=== PATIENT | male | born 1985 | race Caucasian/White ===

== ENCOUNTER 2018-05-30 12:47 | Emergency (ER) | payer OTHER ==
[2018-05-30] MEDS ORDERED: Metoprolol Tartrate TAB* 25 MG PO ONE ×2 (13:06→14:41)
[2018-05-30] MEDS ORDERED: LORazepam TAB(*) 1 MG PO ONE (13:06)
--- NOTE | 2018-05-30 13:12 | ED ---
HPI Cardiac - HPI Summary HPI Summary: This is carl Morales documenting for attending Marty Lamas MD. Patient is a 32 y/o M BIBA w/ c/o heart racing and possible anxiety attack. He is in [facility] for alcohol rehabilitation. Patient reports that he could not sleep last night. While he was lying down in the morning reading a book, he states his heart started racing for some time. The patient notes he experienced two episodes later in the morning, each of which was worse than the previous. During the third episode, he notes he was in the shower and he started to hyperventilate and reports experiencing blurred vision. He also claims experiencing tingling in his body and face. Right sided chest pain and palpitations are experienced during these episodes. However, on triage pain is denied and nothing is noted to aggravate/alleviate Sx. [facility] RN provided zoloft, hydroxyzine, habapentin, clonidine, and folic acid, but none of these were noted to alleviate Sx. EMS reports patient was measured to be tachycardic at 110 -140 BPM. He denies Hx of drug use and smoking. PMHx of cardiac disease is denied but he has FMHx of cardiac disease. - History of Current Complaint Stated Complaint: ANXIETY,RAPID HR Time Seen by Provider: 05/30/18 12:52 Hx Obtained From: Patient Onset/Duration: Started Hours Ago - onset this morning Timing: Intermittent - 3 separate episodes Current Severity: None - on triage, pain is denied Pain Intensity: 0 Pain Scale Used: 0-10 Numeric - 0/10 Chest Pain Location: Discrete at: - right side of chest Chest Pain Radiates: No Aggravating Factor(s): Nothing Alleviating Factor(s): Nothing Associated Signs and Symptoms: Positive: Chest Pain - right sided, Tingling - face/body, Palpitations, Other: - heart racing, hyperventilating, blurred vision PMH/Surg Hx/FS Hx/Imm Hx Cardiovascular History: Denies: Hx Myocardial Infarction Sensory History: Denies: Hx Legally Blind Infectious Disease History: No Infectious Disease History: Denies: Traveled Outside the [place] in Last 30 Days - Family History Known Family History: Positive: Cardiac Disease - Social History Lives: [facility] - lives at [facility] Alcohol Use: patient is in rehab for alcohol currently, Hx of alcohol abuse Substance Use Type: Reports: None Smoking Status (MU): Never Smoked Tobacco Review of Systems Positive: Blurred Vision Positive: Palpitations, Chest Pain, Other - heart racing, hyperventilation Positive: Other - tingling sensation Positive: Other - c/o anxiety attack All Other Systems Reviewed And Are Negative: Yes Physical Exam - Summary Physical Exam Summary: VITAL SIGNS: Reviewed. GENERAL: Patient is a well-developed and nourished male who is lying comfortable in the stretcher. Patient is not in any acute respiratory distress. HEAD AND FACE: No signs of trauma. No ecchymosis, hematomas or skull depressions. No sinus tenderness. EYES: PERRLA, EOMI x 2, No injected conjunctiva, no nystagmus. EARS: Hearing grossly intact. Ear canals and tympanic membranes are within normal limits. MOUTH: Oropharynx within normal limits. NECK: Supple, trachea is midline, no adenopathy, no JVD, no carotid bruit, no c- spine tenderness, neck with full ROM. CHEST: Symmetric, no tenderness at palpation LUNGS: Clear to auscultation bilaterally. No wheezing or crackles. CVS: Regular rate and rhythm, S1 and S2 present, no murmurs or gallops appreciated. ABDOMEN: Soft, non-tender. No signs of distention. No rebound no guarding, and no masses palpated. Bowel sounds are normal. EXTREMITIES: FROM in all major joints, no edema, no cyanosis or clubbing. NEURO: Alert and oriented x 3. No acute neurological deficits. Speech is normal and follows commands. SKIN: Dry and warm Triage Information Reviewed: Yes Vital Signs On Initial Exam: Initial Vitals Temp Pulse Resp BP Pulse Ox 98.5 F 95 20 134/95 100 05/30/18 12:51 05/30/18 12:51 05/30/18 12:51 05/30/18 12:51 05/30/18 12:51 Vital Signs Reviewed: Yes Diagnostics - Vital Signs Vital Signs Temp Pulse Resp BP Pulse Ox 05/30/18 12:51 98.5 F 95 20 134/95 100 - Laboratory Result Diagrams: 05/30/18 13:18 05/30/18 13:18 Lab Statement: Any lab studies that have been ordered have been reviewed, and results considered in the medical decision making process. - Radiology CXR Xray Interpretation: No Acute Changes Radiology Interpretation Completed By: Radiologist - Normal Chest. This report was reviewed by ED physician. - CT CXR CT Interpretation: No Acute Changes CT Interpretation Completed By: Radiologist - Normal Chest. This report was reviewed by ED physician. - EKG 1425 Cardiac Rate: NL - rate of 86 bpm EKG Rhythm: Sinus Rhythm EKG Interpretation: no ST elevation, normal axis Re-Evaluation - Re-Evaluation First Eval Re-Evaluation Time: 15:17 Comment: Discussed labs, test results, and follow-up plan with patient. The patient is agreeable with the plan. Disposition - Course Assessment/Plan: Physical Augmentin care Patient is a 32-year-old male who presents to the emergency department with chief complaint of having anxiety, panic attacks, and palpitations. Patient is in [facility] for alcoholism. Blood test results without any significant abnormality, urinalysis is negative for UTI , urine toxicology negative. EKG shows a normal sinus rhythm without ST elevations. Chest x-ray impression: No acute cardiopulmonary pathology. In the ED course the patient was given Ativan and after these medications the symptoms resolved. The patient was observed in the emergency room for a couple hours and he did not have any episodes of anxiety. He has episodes when his heart rate is increased pain usually is when he is moving, upset. However the patient is asymptomatic. Patient denies any dizziness, chest pain or palpitations. At this point the patient is hemodynamically stable alert and oriented 3. Patient will be discharged home with follow-up with primary care physician. Patient was instructed to return to the emergency department if he develop any other symptoms. The patient understands and agrees. - Diagnoses Provider Diagnoses: Anxiety, Sinus tachycardia seen on monitoring specialist Discharge - Sign-Out/Discharge Documenting (check all that apply): Patient Departure - discharge - Discharge Plan Condition: Stable Disposition: HOME Prescriptions: hydrOXYzine HCL TAB* [Atarax 25 MG TAB*] 25 mg PO TID PRN #30 tab PRN Reason: Anxiety Patient Education Materials: Anxiety (ED), Tachycardia (ED) Referrals: [facility] [Outside] - 3 Days Additional Instructions: Return to ED for any new or worsening symptoms.
[2018-05-30 13:28] LABS: ABS Basophils 0 10^3/ul (0-0.2); ABS Eosinophils 0 10^3/ul (0-0.6); ABS Monocytes 0.7 10^3/ul (0-0.8); ABS Neutrophils 8.1 10^3/ul (1.5-7.7); ABS Nucleated RBC 0 10^3/ul; Eosinophil % 0.5 % (0-6); Hematocrit 40 % (42-52); Hemoglobin 14.3 g/dl (14.0-18.0); Lymphocyte % 9.7 % (25-47); Mean Corpuscular HGB Conc 35 g/dl (31-36); Mean Corpuscular Hemoglobin 31 pg (27-31); Mean Corpuscular Volume 87 fL (80-94); Mean Platelet Volume 7.8 um3 (7.4-10.4); Nucleated Red Blood Cells % 0; Platelet Count 369 10^3/ul (150-450); Red Blood Count 4.66 10^6/ul (4.00-5.40); Red Cell Distribution Width 15 % (10.5-15); White Blood Count 9.9 10^3/ul (3.5-10.8)
[2018-05-30 13:43] LABS: Urine Appearance Clear; Urine Blood Negative (Negative); Urine Color Yellow; Urine Ketones Negative (Negative); Urine Protein Negative (Negative); Urine Urobilinogen Negative (Negative)
--- NOTE | 2018-05-30 13:45 | RAD ---
INDICATION: Palpitations COMPARISON: None TECHNIQUE: PA and lateral dual-energy views were obtained. FINDINGS: Bones/Soft Tissues: There are no acute bony findings. Cardiomediastinal: The cardiomediastinal silhouette is normal. Lungs: There are no infiltrates. Pleura: There are no pleural effusions. Other: None IMPRESSION: NORMAL CHEST
[2018-05-30 13:50] LABS: EGFR Non-African American 87.6 (>60)
--- OUTSIDE RECORDS SUMMARY | 2018-05-30 14:27 | XMS REPORT | Continuity of Care Document ---
:1985 Author Organization [facility] Care Team Providers Name Role Phone LUCIO DILLARD Primary Care Physician Allergies and Intolerances No Known Allergies Medications RxNorm Medication Dose Route Instructions Start Date End Date Status 792667 Acetaminophen 325 650 MG ORAL EVERY 6 HOURS Active MG Oral Tablet NEEDED as needed. [Tylenol] (pt has no idea what meds he takes. Pt preferred pharmacy was contacted, but pharmacy states he doesn't pick up operator meds there. ) Adderall Oral oral orally every day Active (pt couldn't recall strength of med. pt has no idea what meds he takes. Pt preferred pharmacy was contacted, but pharmacy states he doesn't pick up operator meds there. ) 814965 Folic Acid 1 MG 1 MG ORAL ONCE A DAY (pt Active Oral Tablet has no idea what meds he takes. Pt preferred pharmacy was contacted, but pharmacy states he doesn't pick up operator meds there. ) 899369 Hydroxyzine Pamoate 25 MG ORAL 4 TIMES DAILY Active 25 MG Oral Capsule NEEDED as needed. (pt has no idea what meds he takes. Pt preferred pharmacy was contacted, but pharmacy states he doesn't pick up operator meds there. ) LACTOBACILLUS 1 CAP ORAL ONCE A DAY (pt Active CAPSULE 10 BILLION has no idea what meds he takes. Pt preferred pharmacy was contacted, but pharmacy states he doesn't pick up operator meds there. ) Multivitamins 1 tab oral orally every day Active Tablet (pt has no idea what meds he takes. Pt preferred pharmacy was contacted, but pharmacy states he doesn't pick up operator meds there. ) 996540 pantoprazole 40 MG 40 MG ORAL ONCE A DAY (pt Active Delayed Release has no idea what Oral Tablet meds he takes. Pt preferred pharmacy was contacted, but pharmacy states he doesn't pick up operator meds there. ) 2721784 Paroxetine 10 MG ORAL ONCE A DAY (pt Active Hydrochloride 20 MG has no idea what Oral Tablet meds he takes. Pt preferred pharmacy was contacted, but pharmacy states he doesn't pick up operator meds there. ) 767590 Thiamine 100 MG 100 mg oral orally every day Active Oral Tablet (pt has no idea what meds he takes. Pt preferred pharmacy was contacted, but pharmacy states he doesn't pick up operator meds there. ) 15369 Vitamin B 12 oral orally every day Active (pt couldn't recall strength of med. pt has no idea what meds he takes. Pt preferred pharmacy was contacted, but pharmacy states he doesn't pick up operator meds there. ) Zoloft Oral oral orally every day Active (pt couldn't recall strength of med. pt has no idea what meds he takes. Pt preferred pharmacy was contacted, but pharmacy states he doesn't pick up operator meds there. ) Problems Code Code System Problem Name Start Date End Date Status 379155484 SNOMED-CT Alcohol withdrawal syndrome 05/22/2018 Active 19457989 SNOMED-CT Psychomotor agitation 12/14/2017 Active 4315758 SNOMED-CT Hypophosphatemia 12/14/2017 Active 16807415 SNOMED-CT Toxic encephalopathy 12/14/2017 Active 031467375 SNOMED-CT Rhabdomyolysis 12/13/2017 Active 20549874 SNOMED-CT Alcohol abuse 10/13/2017 Active 3866069 SNOMED-CT Alcoholism U Active 04919768 SNOMED-CT Depressive disorder U Active 99000435 SNOMED-CT Anxiety U Active 32094449 SNOMED-CT Psychoactive substance use disorder U Active 186250755 SNOMED-CT Continuous chronic alcoholism U Active 774393259 SNOMED-CT Polysubstance abuse U Active Procedures No data in the system Results Laboratory Results Order: CBC Specimen Source: Body Site: Legend: (G,H)=High, (GG,HH,CH,#H)=Above High Threshold, (#,L)=Low, (##,CL,#L,LL) =Below Low Threshold, (C,CC,CA,#A,A)=Abnormal LOINC Test Result Flag Range Units Date 6689-12 1WBC # Bld Auto 8.6 4.8-10.8 K/uL 05/28/2018 05:33 59646-9 1RBC # Bld 4.49 L 4.60-6.20 M/uL 05/28/2018 05:33 718-7 1Hgb Bld-mCnc 14.0 13.5-18.0 gm/dL 05/28/2018 05:33 4544-3 1Hct VFr Bld Auto 39.5 L 41.0-53.0 % 05/28/2018 05:33 787-2 1MCV RBC Auto 88.1 80.0-100.0 fL 05/28/2018 05:33 99342-0 1MCHC RBC-mCnc 35.5 30.0-36.5 % 05/28/2018 05:33 06341-3 1MCH RBC Qn 31.2 27.0-34.0 pg 05/28/2018 05:33 57048-3 1RDW RBC 12.9 11.0-15.0 % 05/28/2018 05:33 777-3 1Platelet # Bld Auto 332 130-450 K/uL 05/28/2018 05:33 13007-6 1PMV Bld Auto 7.2 6.0-12.0 fL 05/28/2018 05:33 Performing Lab Footnotes:[facility] - [id number] - [address] [place] [address] SANTIAGO Tellez JANETT Order: COMPREHENSIVE PANEL Specimen Source: Body Site: Legend: (G,H)= High, (GG,HH,CH,#H)=Above High Threshold, (#,L)=Low, (##,CL,#L,LL)=Below Low Threshold, (C,CC,CA,#A,A)=Abnormal LOINC Test Result Flag Range Units Date 2950-2 1Sodium SerPl-sCnc 140 136-145 mmol/L 05/28/2018 05:33 2823-3 1Potassium SerPl-sCnc 4.0 3.5-5.2 mmol/L 05/28/2018 05:33 5-0 1Chloride SerPl-sCnc 103 100-108 mmol/L 05/28/2018 05:33 8-9 1CO2 SerPl-sCnc 26 21-32 mmol/L 05/28/2018 05:33 2345-7 1Glucose SerPl-mCnc 102 H 70-100 mg/dL 05/28/2018 05:33 3094-0 1BUN SerPl-mCnc 13 7-21 mg/dL 05/28/2018 05:33 2160-0 1Creat SerPl-mCnc 1.1 0.6-1.3 mg/dL 05/28/2018 05:33 Interpretive Maxine: 1Normal Kidney Function or Mild Disease - GFR >OR=60 Chronic Kidney Disease - GFR 15-59 Renal Failure - GFR < 15 GFR not calculated on patients under 18 years of age. Calculated (estimated) GFR is based on the MDRD Study equation, which assumes a steady state for creatinine. Estimated GFR may not be appropriate for medication dosing. 25225-5 1Ca-I SerPl-mCnc 9.7 8.5-10.8 mg/dL 05/28/2018 05:33 13078-3 1GFR/BSA.pred SerPl-ArVRat >60 05/28/2018 05:33 81876-3 1Bilirub Bld-mCnc 0.4 0.0-1.2 mg/dL 05/28/2018 05:33 2885-2 1Prot SerPl-mCnc 7.4 6.4-8.2 gm/dL 05/28/2018 05:33 1751-7 1Albumin SerPl-mCnc 4.3 3.4-4.8 gm/dL 05/28/2018 05:33 6768-6 1ALP SerPl-cCnc 103 40-150 U/L 05/28/2018 05:33 1742-6 1ALT SerPl-cCnc 44 0-55 U/L 05/28/2018 05:33 1920-8 1AST SerPl-cCnc 35 5-37 U/L 05/28/2018 05:33 Performing Lab Footnotes:[facility] - [id number] - [address] [place] [address] SANTIAGO ROWLAND Order: MAGNESIUM Specimen Source: Body Site: Legend: (G,H)=High, (GG,HH ,CH,#H)=Above High Threshold, (#,L)=Low, (##,CL,#L,LL)=Below Low Threshold, (C, CC,CA,#A,A)=Abnormal LOINC Test Result Flag Range Units Date 16401-9 1Magnesium SerPl-mCnc 2.6 1.7-2.6 mg/dL 05/28/2018 05:33 Performing Lab Footnotes:[facility] - [id number] [place] [address] SANTIAGO HUSSEINOMD1 Order: PHOSPHORUS Specimen Source: Body Site: Legend: (G,H)=High, (GG, HH,CH,#H)=Above High Threshold, (#,L)=Low, (##,CL,#L,LL)=Below Low Threshold, (C ,CC,CA,#A,A)=Abnormal LOINC Test Result Flag Range Units Date 2777- 1Phosphate SerPl-mCnc 4.7 2.5-4.9 mg/dL 05/28/2018 05:33 Performing Lab Footnotes:[facility] - [id number] [place] [address] SANTIAGO HUSSEINOMD1 Order: CBC Specimen Source: Body Site: Legend: (G,H)=High, (GG,HH,CH,#H )=Above High Threshold, (#,L)=Low, (##,CL,#L,LL)=Below Low Threshold, (C,CC,CA,# A,A)=Abnormal LOINC Test Result Flag Range Units Date 6690-2 1WBC # Bld Auto 7.3 4.8-10.8 K/uL 05/26/2018 04:52 41430-6 1RBC # Bld 4.58 L 4.60-6.20 M/uL 05/26/2018 04:52 718-7 1Hgb Bld-mCnc 14.4 13.5-18.0 gm/dL 05/26/2018 04:52 4544-3 1Hct VFr Bld Auto 39.7 L 41.0-53.0 % 05/26/2018 04:52 787-2 1MCV RBC Auto 86.7 80.0-100.0 fL 05/26/2018 04:52 21260-6 1MCHC RBC-mCnc 36.3 30.0-36.5 % 05/26/2018 04:52 16414-7 1MCH RBC Qn 31.5 27.0-34.0 pg 05/26/2018 04:52 01669-8 1RDW RBC 12.8 11.0-15.0 % 05/26/2018 04:52 777-3 1Platelet # Bld Auto 320 130-450 K/uL 05/26/2018 04:52 25542-0 1PMV Bld Auto 7.5 6.0-12.0 fL 05/26/2018 04:52 Performing Lab Footnotes:[facility] - [id number] - [address] [place] [address] SANTIAGO ROWLAND Order: COMPREHENSIVE PANEL Specimen Source: Body Site: Legend: (G,H)= High, (GG,HH,CH,#H)=Above High Threshold, (#,L)=Low, (##,CL,#L,LL)=Below Low Threshold, (C,CC,CA,#A,A)=Abnormal LOINC Test Result Flag Range Units Date 2951-2 1Sodium SerPl-sCnc 135 L 136-145 mmol/L 05/26/2018 04:52 2823-3 1Potassium SerPl-sCnc 3.4 L 3.5-5.2 mmol/L 05/26/2018 04:52 2075-0 1Chloride SerPl-sCnc 102 100-108 mmol/L 05/26/2018 04:52 2028-9 1CO2 SerPl-sCnc 22 21-32 mmol/L 05/26/2018 04:52 2345-7 1Glucose SerPl-mCnc 91 70-100 mg/dL 05/26/2018 04:52 3094-0 1BUN SerPl-mCnc 13 7-21 mg/dL 05/26/2018 04:52 2160-0 1Creat SerPl-mCnc 1.0 0.6-1.3 mg/dL 05/26/2018 04:52 Interpretive Maxine: 1Normal Kidney Function or Mild Disease - GFR >OR=60 Chronic Kidney Disease - GFR 15-59 Renal Failure - GFR < 15 GFR not calculated on patients under 18 years of age. Calculated (estimated) GFR is based on the MDRD Study equation, which assumes a steady state for creatinine. Estimated GFR may not be appropriate for medication dosing. 33967-3 1Ca-I SerPl-mCnc 9.5 8.5-10.8 mg/dL 05/26/2018 04:52 10689-7 1GFR/BSA.pred SerPl-ArVRat >60 05/26/2018 04:52 46026-3 1Bilirub Bld-mCnc 1.2 0.0-1.2 mg/dL 05/26/2018 04:52 2885-2 1Prot SerPl-mCnc 7.3 6.4-8.2 gm/dL 05/26/2018 04:52 1751-7 1Albumin SerPl-mCnc 4.2 3.4-4.8 gm/dL 05/26/2018 04:52 6768-6 1ALP SerPl-cCnc 102 40-150 U/L 05/26/2018 04:52 1742-6 1ALT SerPl-cCnc 31 0-55 U/L 05/26/2018 04:52 1920-8 1AST SerPl-cCnc 30 5-37 U/L 05/26/2018 04:52 Performing Lab Footnotes:[facility] - [id number] - [address] [place] [address] SANTIAGO ROWLAND Order: VITAMIN B12 Specimen Source: Body Site: Legend: (G,H)=High, (GG, HH,CH,#H)=Above High Threshold, (#,L)=Low, (##,CL,#L,LL)=Below Low Threshold, (C ,CC,CA,#A,A)=Abnormal LOINC Test Result Flag Range Units Date 2132-07 1Vit B12 SerPl-mCnc 566 230-1,180 pg/mL 05/26/2018 04:52 Performing Lab Footnotes:[facility] - [id number] - [address] [place] [address] SANTIAGO ROWLAND Order: CBC DIFF Specimen Source: Body Site: Legend: (G,H)=High, (GG,HH, CH,#H)=Above High Threshold, (#,L)=Low, (##,CL,#L,LL)=Below Low Threshold, (C,CC ,CA,#A,A)=Abnormal LOINC Test Result Flag Range Units Date 6690-2 1WBC # Bld Auto 7.5 4.8-10.8 K/uL 05/25/2018 05:15 94924-6 1RBC # Bld 4.50 L 4.60-6.20 M/uL 05/25/2018 05:15 718-7 1Hgb Bld-mCnc 13.2 L 13.5-18.0 gm/dL 05/25/2018 05:15 4544-3 1Hct VFr Bld Auto 38.7 L 41.0-53.0 % 05/25/2018 05:15 787-2 1MCV RBC Auto 86.2 80.0-100.0 fL 05/25/2018 05:15 13219-9 1MCHC RBC-mCnc 34.0 30.0-36.5 % 05/25/2018 05:15 22134-7 1MCH RBC Qn 29.3 27.0-34.0 pg 05/25/2018 05:15 22537-0 1RDW RBC 12.8 11.0-15.0 % 05/25/2018 05:15 777-3 1Platelet # Bld Auto 333 130-450 K/uL 05/25/2018 05:15 62659-0 1PMV Bld Auto 7.5 6.0-12.0 fL 05/25/2018 05:15 751-8 1Neutrophils # Bld Auto 73 37-80 % 05/25/2018 05:15 46466-1 1Lymphocytes NFr Bld 13 10-50 % 05/25/2018 05:15 5905-5 1Monocytes NFr Bld Auto 12 0-12 % 05/25/2018 05:15 17692-8 1Eosinophil # Bld 1 <=8 % 05/25/2018 05:15 704-7 1Basophils # Bld Auto 1 <=3 % 05/25/2018 05:15 70691-4 1Neutrophils # Bld 5.5 1.8-8.6 K/uL 05/25/2018 05:15 731-0 1Lymphocytes # Bld Auto 1.0 0.5-5.0 K/uL 05/25/2018 05:15 742-7 1Monocytes # Bld Auto 0.9 0.0-1.3 K/uL 05/25/2018 05:15 27371-8 1Eosinophil # Bld 0.1 0.0-0.9 K/uL 05/25/2018 05:15 704-7 1Basophils # Bld Auto 0.0 0.0-0.3 K/ul 05/25/2018 05:15 Performing Lab Footnotes:[facility] - [id number] - [address] [place] [address] SANTIAGO Tellez JOVITAOMD1 Order: COMPREHENSIVE PANEL Specimen Source: Body Site: Legend: (G,H)= High, (GG,HH,CH,#H)=Above High Threshold, (#,L)=Low, (##,CL,#L,LL)=Below Low Threshold, (C,CC,CA,#A,A)=Abnormal LOINC Test Result Flag Range Units Date 1-2 1Sodium SerPl-sCnc 135 L 136-145 mmol/L 05/25/2018 05:15 2823-3 1Potassium SerPl-sCnc 3.4 L 3.5-5.2 mmol/L 05/25/2018 05:15 5-0 1Chloride SerPl-sCnc 102 100-108 mmol/L 05/25/2018 05:15 2027-9 1CO2 SerPl-sCnc 23 21-32 mmol/L 05/25/2018 05:15 5-7 1Glucose SerPl-mCnc 98 70-100 mg/dL 05/25/2018 05:15 3094-0 1BUN SerPl-mCnc 7 7-21 mg/dL 05/25/2018 05:15 2160-0 1Creat SerPl-mCnc 0.8 0.6-1.3 mg/dL 05/25/2018 05:15 Interpretive Maxine: 1Normal Kidney Function or Mild Disease - GFR >OR=60 Chronic Kidney Disease - GFR 15-59 Renal Failure - GFR < 15 GFR not calculated on patients under 18 years of age. Calculated (estimated) GFR is based on the MDRD Study equation, which assumes a steady state for creatinine. Estimated GFR may not be appropriate for medication dosing. 37418-7 1Ca-I SerPl-mCnc 9.1 8.5-10.8 mg/dL 05/25/2018 05:15 52553-1 1GFR/BSA.pred SerPl-ArVRat >60 05/25/2018 05:15 50983-9 1Bilirub Bld-mCnc 1.5 H 0.0-1.2 mg/dL 05/25/2018 05:15 2885-2 1Prot SerPl-mCnc 7.1 6.4-8.2 gm/dL 05/25/2018 05:15 1751-7 1Albumin SerPl-mCnc 4.1 3.4-4.8 gm/dL 05/25/2018 05:15 6768-6 1ALP SerPl-cCnc 110 40-150 U/L 05/25/2018 05:15 1742-6 1ALT SerPl-cCnc 32 0-55 U/L 05/25/2018 05:15 1920-8 1AST SerPl-cCnc 32 5-37 U/L 05/25/2018 05:15 Performing Lab Footnotes:[facility] - [id number] - [address] [place] [address] SANTIAGO ROWLAND Order: MAGNESIUM Specimen Source: Body Site: Legend: (G,H)=High, (GG,HH ,CH,#H)=Above High Threshold, (#,L)=Low, (##,CL,#L,LL)=Below Low Threshold, (C, CC,CA,#A,A)=Abnormal LOINC Test Result Flag Range Units Date 75687-4 1Magnesium SerPl-mCnc 2.5 1.7-2.6 mg/dL 05/25/2018 05:15 Performing Lab Footnotes:[facility] - [id number] - [address] [place] [address] SANTIAGO HOLLINGSWORTHCIOMD1 Order: PHOSPHORUS Specimen Source: Body Site: Legend: (G,H)=High, (GG, HH,CH,#H)=Above High Threshold, (#,L)=Low, (##,CL,#L,LL)=Below Low Threshold, (C ,CC,CA,#A,A)=Abnormal LOINC Test Result Flag Range Units Date 2777- 1Phosphate SerPl-mCnc 3.7 2.5-4.9 mg/dL 05/25/2018 05:15 Performing Lab Footnotes:[facility] - [id number] - [address] [place] [address] SANTIAGO HOLLINGSWORTHCIOMD1 Order: CBC Specimen Source: Body Site: Legend: (G,H)=High, (GG,HH,CH,#H )=Above High Threshold, (#,L)=Low, (##,CL,#L,LL)=Below Low Threshold, (C,CC,CA,# A,A)=Abnormal LOINC Test Result Flag Range Units Date 6690-2 1WBC # Bld Auto 11.8 H 4.8-10.8 K/uL 05/24/2018 05:56 94388-3 1RBC # Bld 4.46 L 4.60-6.20 M/uL 05/24/2018 05:56 718-7 1Hgb Bld-mCnc 13.2 L 13.5-18.0 gm/dL 05/24/2018 05:56 4544-3 1Hct VFr Bld Auto 38.2 L 41.0-53.0 % 05/24/2018 05:56 787-2 1MCV RBC Auto 85.5 80.0-100.0 fL 05/24/2018 05:56 61013-5 1MCHC RBC-mCnc 34.5 30.0-36.5 % 05/24/2018 05:56 84421-7 1MCH RBC Qn 29.5 27.0-34.0 pg 05/24/2018 05:56 48560-9 1RDW RBC 12.5 11.0-15.0 % 05/24/2018 05:56 777-3 1Platelet # Bld Auto 329 130-450 K/uL 05/24/2018 05:56 65423-5 1PMV Bld Auto 7.2 6.0-12.0 fL 05/24/2018 05:56 Performing Lab Footnotes:[facility] - [id number] - [address] [place] [address] SANTIAGO ROWLAND Order: COMPREHENSIVE PANEL Specimen Source: Body Site: Legend: (G,H)= High, (GG,HH,CH,#H)=Above High Threshold, (#,L)=Low, (##,CL,#L,LL)=Below Low Threshold, (C,CC,CA,#A,A)=Abnormal LOINC Test Result Flag Range Units Date 2951-2 1Sodium SerPl-sCnc 138 136-145 mmol/L 05/24/2018 05:56 2823-3 1Potassium SerPl-sCnc 3.6 3.5-5.2 mmol/L 05/24/2018 05:56 5-0 1Chloride SerPl-sCnc 102 100-108 mmol/L 05/24/2018 05:56 8-9 1CO2 SerPl-sCnc 25 21-32 mmol/L 05/24/2018 05:56 2345-7 1Glucose SerPl-mCnc 113 H 70-100 mg/dL 05/24/2018 05:56 3094-0 1BUN SerPl-mCnc 6 L 7-21 mg/dL 05/24/2018 05:56 2160-0 1Creat SerPl-mCnc 0.8 0.6-1.3 mg/dL 05/24/2018 05:56 Interpretive Maxine: 1Normal Kidney Function or Mild Disease - GFR >OR=60 Chronic Kidney Disease - GFR 15-59 Renal Failure - GFR < 15 GFR not calculated on patients under 18 years of age. Calculated (estimated) GFR is based on the MDRD Study equation, which assumes a steady state for creatinine. Estimated GFR may not be appropriate for medication dosing. 61618-0 1Ca-I SerPl-mCnc 8.8 8.5-10.8 mg/dL 05/24/2018 05:56 75088-6 1GFR/BSA.pred SerPl-ArVRat >60 05/24/2018 05:56 61094-7 1Bilirub Bld-mCnc 0.8 0.0-1.2 mg/dL 05/24/2018 05:56 2885-2 1Prot SerPl-mCnc 7.3 6.4-8.2 gm/dL 05/24/2018 05:56 1751-7 1Albumin SerPl-mCnc 4.2 3.4-4.8 gm/dL 05/24/2018 05:56 6768-6 1ALP SerPl-cCnc 99 40-150 U/L 05/24/2018 05:56 1742-6 1ALT SerPl-cCnc 42 0-55 U/L 05/24/2018 05:56 1920-8 1AST SerPl-cCnc 40 H 5-37 U/L 05/24/2018 05:56 Performing Lab Footnotes:[facility] - [id number] [place] [address] SANTIAGO HOLLINGSWORTHCIOMD1 Order: MAGNESIUM Specimen Source: Body Site: Legend: (G,H)=High, (GG,HH ,CH,#H)=Above High Threshold, (#,L)=Low, (##,CL,#L,LL)=Below Low Threshold, (C, CC,CA,#A,A)=Abnormal LOINC Test Result Flag Range Units Date 85271-8 1Magnesium SerPl-mCnc 2.4 1.7-2.6 mg/dL 05/24/2018 05:56 Performing Lab Footnotes:[facility] - [id number] [place] [address] SANTIAGO HOLLINGSWORTHCIOMD1 Order: PT/INR Specimen Source: Body Site: Legend: (G,H)=High, (GG,HH,CH ,#H)=Above High Threshold, (#,L)=Low, (##,CL,#L,LL)=Below Low Threshold, (C,CC, CA,#A,A)=Abnormal LOINC Test Result Flag Range Units Date 5902-2 1PT Time PPP 11.4 9.4-12.4 sec 05/24/2018 05:56 6301-6 1INR PPP 1.0 05/24/2018 05:56 Interpretive Maxine: 1 INR INTERPERTATION 2.0-3.0 THERAPEUTIC MONITORING 2.5-3.5 HEART VALVE REPLACEMENT Performing Lab Footnotes:[facility] - [id number] - [address] [place] [address] SANTIAGO JUNIORD1 Order: UTOX URINE DRUG SCREEN Specimen Source: Body Site: Legend: (G,H )=High, (GG,HH,CH,#H)=Above High Threshold, (#,L)=Low, (##,CL,#L,LL)=Below Low Threshold, (C,CC,CA,#A,A)=Abnormal LOINC Test Result Flag Range Units Date 1Amphet Ur Ql Scn NEGATIVE NEGATIVE 05/23/2018 20:16 3374-6 1Barbiturate Scn Present Ur NEGATIVE NEGATIVE 05/23/2018 20:16 25316-1 1Benzodiaz metab Ur Ql Scn NEGATIVE NEGATIVE 05/23/2018 20:16 3879-4 1Opiates Ur Ql NEGATIVE NEGATIVE 05/23/2018 20:16 3397-7 1Cocaine Ur Ql NEGATIVE NEGATIVE 05/23/2018 20:16 28096-9 111OH-THC Ur Ql Scn NEGATIVE NEGATIVE 05/23/2018 20:16 18968-5 1PCP Ur Scn-mCnc NEGATIVE NEGATIVE 05/23/2018 20:16 18734-4 1Methadone Ur Ql Scn NEGATIVE NEGATIVE 05/23/2018 20:16 1A Positive Drug Screen will not be Confirmed unless requested by the Physician. Please contact the Lab ([phone]) within 5 days for Confirmation Testing. Performing Lab Footnotes:[facility] - [id number] - [address] [place] [address] SANTIAGO ROWLAND Order: ALCOHOL BLOOD MEDICAL Specimen Source: Body Site: Legend: (G,H) =High, (GG,HH,CH,#H)=Above High Threshold, (#,L)=Low, (##,CL,#L,LL)=Below Low Threshold, (C,CC,CA,#A,A)=Abnormal LOINC Test Result Flag Range Units Date 5640-8 1Ethanol Bld-mCnc 0.220 gm% 05/23/2018 17:51 Performing Lab Footnotes:[facility] - [id number] - [address] [place] [address] SANTIAGO ROWLAND Order: CBC DIFF Specimen Source: Body Site: Legend: (G,H)=High, (GG,HH, CH,#H)=Above High Threshold, (#,L)=Low, (##,CL,#L,LL)=Below Low Threshold, (C,CC ,CA,#A,A)=Abnormal LOINC Test Result Flag Range Units Date 6690-2 1WBC # Bld Auto 8.2 4.8-10.8 K/uL 05/23/2018 17:51 13198-3 1RBC # Bld 4.35 L 4.60-6.20 M/uL 05/23/2018 17:51 718-7 1Hgb Bld-mCnc 13.7 13.5-18.0 gm/dL 05/23/2018 17:51 4544-3 1Hct VFr Bld Auto 37.2 L 41.0-53.0 % 05/23/2018 17:51 787-2 1MCV RBC Auto 85.3 80.0-100.0 fL 05/23/2018 17:51 78846-8 1MCHC RBC-mCnc 37.0 H 30.0-36.5 % 05/23/2018 17:51 02460-6 1MCH RBC Qn 31.6 27.0-34.0 pg 05/23/2018 17:51 74716-5 1RDW RBC 12.6 11.0-15.0 % 05/23/2018 17:51 777-3 1Platelet # Bld Auto 337 130-450 K/uL 05/23/2018 17:51 21005-4 1PMV Bld Auto 6.8 6.0-12.0 fL 05/23/2018 17:51 751-8 1Neutrophils # Bld Auto 66 37-80 % 05/23/2018 17:51 71269-0 1Lymphocytes NFr Bld 21 10-50 % 05/23/2018 17:51 5905-5 1Monocytes NFr Bld Auto 11 0-12 % 05/23/2018 17:51 66107-7 1Eosinophil # Bld 2 <=8 % 05/23/2018 17:51 704-7 1Basophils # Bld Auto 1 <=3 % 05/23/2018 17:51 31186-5 1Neutrophils # Bld 5.4 1.8-8.6 K/uL 05/23/2018 17:51 731-0 1Lymphocytes # Bld Auto 1.7 0.5-5.0 K/uL 05/23/2018 17:51 742-7 1Monocytes # Bld Auto 0.9 0.0-1.3 K/uL 05/23/2018 17:51 20122-4 1Eosinophil # Bld 0.1 0.0-0.9 K/uL 05/23/2018 17:51 704-7 1Basophils # Bld Auto 0.0 0.0-0.3 K/ul 05/23/2018 17:51 Performing Lab Footnotes:[facility] - [id number] - [address] [place] [address] SANTIAGO JUNIORD1 Order: COMPREHENSIVE PANEL Specimen Source: Body Site: Legend: (G,H)= High, (GG,HH,CH,#H)=Above High Threshold, (#,L)=Low, (##,CL,#L,LL)=Below Low Threshold, (C,CC,CA,#A,A)=Abnormal LOINC Test Result Flag Range Units Date 2951-2 1Sodium SerPl-sCnc 140 136-145 mmol/L 05/23/2018 17:51 2823-3 1Potassium SerPl-sCnc 3.2 L 3.5-5.2 mmol/L 05/23/2018 17:51 2075-0 1Chloride SerPl-sCnc 106 100-108 mmol/L 05/23/2018 17:51 2028-9 1CO2 SerPl-sCnc 24 21-32 mmol/L 05/23/2018 17:51 2345-7 1Glucose SerPl-mCnc 110 H 70-100 mg/dL 05/23/2018 17:51 3094-0 1BUN SerPl-mCnc 9 7-21 mg/dL 05/23/2018 17:51 2160-0 1Creat SerPl-mCnc 0.8 0.6-1.3 mg/dL 05/23/2018 17:51 Interpretive Maxine: 1Normal Kidney Function or Mild Disease - GFR >OR=60 Chronic Kidney Disease - GFR 15-59 Renal Failure - GFR < 15 GFR not calculated on patients under 18 years of age. Calculated (estimated) GFR is based on the MDRD Study equation, which assumes a steady state for creatinine. Estimated GFR may not be appropriate for medication dosing. 89222-7 1Ca-I SerPl-mCnc 8.8 8.5-10.8 mg/dL 05/23/2018 17:51 49594-2 1GFR/BSA.pred SerPl-ArVRat >60 05/23/2018 17:51 24508-7 1Bilirub Bld-mCnc 0.4 0.0-1.2 mg/dL 05/23/2018 17:51 2885-2 1Prot SerPl-mCnc 7.8 6.4-8.2 gm/dL 05/23/2018 17:51 1751-7 1Albumin SerPl-mCnc 4.2 3.4-4.8 gm/dL 05/23/2018 17:51 6768-6 1ALP SerPl-cCnc 98 40-150 U/L 05/23/2018 17:51 1742-6 1ALT SerPl-cCnc 40 0-55 U/L 05/23/2018 17:51 1920-8 1AST SerPl-cCnc 46 H 5-37 U/L 05/23/2018 17:51 Performing Lab Footnotes:[facility] - [id number] - [address] [place] [address] SANTIAGO ROWLAND Order: T4 - FREE Specimen Source: Body Site: Legend: (G,H)=High, (GG,HH ,CH,#H)=Above High Threshold, (#,L)=Low, (##,CL,#L,LL)=Below Low Threshold, (C, CC,CA,#A,A)=Abnormal LOINC Test Result Flag Range Units Date 3024-7 1T4 Free SerPl-mCnc 0.98 0.77-1.60 ng/dL 05/23/2018 17:51 Performing Lab Footnotes:[facility] - [id number] - [address] [place] [address] DANIEL [id number] Order: TSH Specimen Source: Body Site: Legend: (G,H)=High, (GG,HH,CH,#H )=Above High Threshold, (#,L)=Low, (##,CL,#L,LL)=Below Low Threshold, (C,CC,CA,# A,A)=Abnormal LOINC Test Result Flag Range Units Date 3016-3 1TSH SerPl-aCnc 2.24 0.34-4.82 uIU/mL 05/23/2018 17:51 Performing Lab Footnotes:[facility] - [id number] - [address] [place] [address] SANTIAGO [id number] Social History Code Code System Social History Observation Description Dates Observed 506908524 SNOMED CT Current Smoking Status Never smoker UNK AdministrativeGender Sex Assigned At Unknown Vital Signs Code Code System Vitals Value Date 8310-5 LOINC Body Temperature 97.3 [degF] 05/29/2018 8865-8 LOINC Pulse Rate 88 {beats}/min 05/29/2018 9279-1 LOINC Respiratory Rate 16 /min 05/29/2018 46275-4 LOINC O2% BldC Oximetry 99 % 05/29/2018 8480-6 LOINC BP Systolic 103 mm[Hg] 05/29/2018 8462-4 LOINC BP Diastolic 70 mm[Hg] 05/29/2018 10710-6 LOINC Weight 70.5 kg 05/26/2018 8302-2 LOINC Height 63 [in_i] 05/23/2018 Goals Section No data in the system Health Concerns No data in the systemEncounter Diagnosis Date Code Code System Diagnosis Status 67206391 SNOMED-CT ALCOHOL DEPEND W/WITHDRAWAL UNS Active Advance Directives *RHIO - CONSENT IS YES Directive Type Effective Date Gauge And Instrument Inspector Notes Supporting Document Name Address Phone No Directive Type 12/13/2017 6:12:19 Not Specified Not Specified Not Specified None No specified AM PT STATES NO ADVANCE DIRECTIVES Directive Type Effective Date Gauge And Instrument Inspector Notes Supporting Document Name Address Phone No Directive Type 05/23/2018 Not Specified Not Specified Not Specified None No specified 10:00:00 PM Family History Relationship: Father Health Problem Age At Onset Notes Sepsis Relationship: Mother Health Problem Age At Onset Notes Mental disorder Functional Status Code Functional Condition Code System Date Status Independent adls SNOMED CT 05/23/2018 Active Self care SNOMED CT 05/23/[address] 05/28/2018 Active Verbalizes understanding SNOMED CT 05/28/[address] 05/28/[address] 05/29/2018 Active 4 - manage pain and encourage activity as SNOMED CT 05/27/2018 Active tolerated 3 - encourage and assist as needed in SNOMED CT 05/27/2018 Active repositioning 3 - encourage active rom SNOMED CT 05/27/2018 Active 3 - include family in interventions SNOMED CT 05/26/2018 Active Bathroom privileges SNOMED CT 05/29/[address] 05/25/[address] feed [address]OMED CT 05/29/2018 Active Needs further teaching SNOMED CT 05/26/[address] 05/27/2018 Active 1 or 2 - all of the above SNOMED CT 05/28/[address] 05/29/2018 Active 111834941 Able to wash self SNOMED CT 05/29/2018 Active Immunizations Vaccine Code Code System Vaccine Name Date Status 115 CVX tetanus toxoid, reduced diphtheria 08/18/2015 Completed toxoid, and acellular pertussis vaccine, adsorbed 150 CVX Influenza, injectable, quadrivalent, 10/13/2017 Completed preservative free Medical Equipment No data in the system Mental Status Code Cognitive Condition Code System Date Status Perrl SNOMED CT 05/23/2018 Active Oriented x [address] 05/23/2018 Active Mild distress SNOMED CT 05/23/[address] 05/23/[address] 05/29/[address] 05/28/[address] 05/25/2018 Active 635103104 Orientated SNOM[address] CT 05/29/2018 Active 513586358 Mentally alert SNOMED CT 05/29/2018 Active 403557568 Drowsy SNOM[address] 05/24/2018 Active 194731425 Oriented to time SNOMED CT 05/29/2018 Active 756383829 Oriented to time (finding) SNOMED CT 05/29/2018 Active [address] SNOMED CT 05/29/2018 Active 540577580 Oriented to place (finding) SNOMED CT 05/29/2018 Active 811283249 Oriented to person SNOMED CT 05/29/2018 Active Assessment and Plan Assessments No data in the systemPlan Of Treatment No data in the systemPending Tests Test Start Date Point of Care URINE DIPSTICK 05/23/2018 Hospital Discharge Instructions Discharge InstructionsDischarge [facility]inationCA[facility]ILITYDischarge DiagnosisACUTE ON CHRONIC ETOH ABUSE / HYPOKALEMIA/ HYPONATREMIA/ HYPERBILIRUBINEMIA/ LEUKOCYTOSISDischarge DestinationOtherFollow Up AppointmentFDLLOW UP WITH PRIMARY CARE SundayJune @10:30 AMDiet at HomeREGULARActivityAs ToleratedSpecial InstructionsHOME 02 NOT NEEDEDAll Personal Belongings, Valuables, Pre-Adm Meds Returned to Patient/FamilyYESMedicationsNew Medication List Provided Above Discharge Instructions Read, Verbalized, and Acknowledged by:PatientPatients HOME MEDICATIONS returned to patient upon dischargeN/A Reason for Visit Reason for Visit ALCOHOL WITHDRAWAL
[2018-05-30 16:46] VITALS: BP 124/76
== END 2018-05-30 16:55 | disposition home or self-care (01) ==
LOC: ED 12:47
DX: F41.9 Anxiety disorder, unspecified (principal); R00.0 Tachycardia, unspecified; H53.8 Other visual disturbances; R00.2 Palpitations; R20.2 Paresthesia of skin; Z82.49 Family history of ischemic heart disease and other diseases of the circulatory system
CPT/HCPCS: 36415; 71046; 80053; 80307; 81003; 83735; 84443; 85025; 93005; 99284; A9270-GY